=== PATIENT | male | born 1995 | race Caucasian/White ===

== ENCOUNTER 2019-09-14 05:21 | Emergency (ER) | payer MEDICAID ==
[~2019-09-14] VITALS: Ht 180.3 cm; Wt 104.0 kg
[2019-09-14] MEDS ORDERED: HYDROCODONE/ACETAMINOPHEN 5/325MG TABLET PO ONE (06:00)
[2019-09-14] MEDS ORDERED: LIDOCAINE HCL/PF 1% 10 MG/ML 5ML VIAL IJ ONE ×3 (06:15→12:00)
[2019-09-14] MEDS ORDERED: TETANUS, DIPHTHERIA, PERTUSSIS VAC/PF 0.5ML (>7YR OLD) IM ONE (06:15)
[2019-09-14] MEDS ORDERED: BACITRACIN ZINC OINT UDPKT TOP ONE (06:15)
[2019-09-14 06:27] LABS: CHLORIDE 110 mEq/L (98-107)
[2019-09-14 06:38] LABS: BASOPHILS % 0.8 % (0.0-2.0); EOSINOPHILS % 5.7 % (0.0-5.0); HEMATOCRIT. 45.3 % (42.0-52.0); HEMOGLOBIN. 15.3 g/dL (14.0-18.0); LYMPHOCYTES % 35.4 % (20.0-50.0); MEAN CORPUSCULAR HEMOGLOBIN 29.9 pg (28.0-32.0); MEAN CORPUSCULAR VOLUME 88.6 fL (80.0-94.0); MEAN PLATELET VOLUME 7.2 fl (7.4-10.4); MONOCYTES % 9.2 % (2.0-8.0); NEUTROPHILS % 48.9 % (40.0-76.0); PLATELET 238 x1000/uL (130-400); RED BLOOD CELL COUNT 5.11 mill/uL (4.7-6.1)
[2019-09-14] MEDS ORDERED: ONDANSETRON HCL 4MG/2ML INJ IV ONE (06:45)
[2019-09-14] MEDS ORDERED: MORPHINE SULFATE 4 MG/ML CPJ (NOT FOR IM USE) IV ONE (06:45)
[2019-09-14] MEDS ORDERED: CEFAZOLIN 1000MG PREMIX 50 ML IV ONE (08:00)
[2019-09-14] MEDS ORDERED: LIDOCAINE HCL 1% 20ML VIAL (Pyxis) INJ INFIL ONE (12:15)
[2019-09-14] MEDS ORDERED: IOHEXOL-350 100 ML BOTTLE ONE (13:47)
[2019-09-14 16:16] VITALS: BP 145/85
== END 2019-09-14 18:03 | disposition home or self-care (01) ==
LOC: ER 05:21
DX: S81.811A Laceration without foreign body, right lower leg, initial encounter (principal); S20.219A Contusion of unspecified front wall of thorax, initial encounter; S10.93XA Contusion of unspecified part of neck, initial encounter; V89.2XXA Person injured in unspecified motor-vehicle accident, traffic, initial encounter; Y93.89 Activity, other specified; Y92.89 Other specified places as the place of occurrence of the external cause; Y99.8 Other external cause status
CPT/HCPCS: 12006; 36415; 70498; 71045; 71260; 73562; 73590; 73660; 80048; 85025; 90471; 90715; 96365; 96375; 99284; J0690; J2270; J2405; J3490; L1830; Q9967; Z7610; A4565